=== PATIENT | female | born 1965 | race Caucasian/White ===

== ENCOUNTER → 2017-03-14 | Outpatient (CLI) | payer OTHER ==
--- NOTE | 2017-03-14 15:11 | RADIOLOGY IMAGING REPORT ---
FACILITY: [facility] - [place] PATIENT NAME: Gabi Garcia : 1965 MR: [id number] V: [id number] EXAM DATE: ORDERING PHYSICIAN: LUIS PRITCHETT TECHNOLOGIST: [place] [facility] [place] Gabi [place] : 1965 Visit/Account:[id number] Date of Sevice: 03/14/2017 L SPINE W/O CONTRAST Provided history: Low back and bilateral hip pain with sciatica. Additional pertinent history: None TECHNIQUE: Multiplanar multisequence lumbar MRI was performed without intravenous contrast. COMPARISON STUDIES: none FINDINGS: Segment numbering: Lumbosacral junction at L5-S1. No transitional segment. Extra-spinal soft tissues: Negative Alignment: Normal Osseous signal pattern: none Distal thoracic cord / conus / cauda equina: negative Disc Spaces: Lower T spine: negative L1-L2: Disk height and signal pattern normal. No evidence of disk herniation or central stenosis No significant foraminal stenosis. L2-L3: Disk height and signal pattern normal. No evidence of disk herniation or central stenosi s. No significant foraminal stenosis. L3-L4: Disk height and signal pattern normal. No evidence of disk herniation or central stenos is. No significant foraminal stenosis. L4-L5: Preserved disk height with abnormal low T2 signal indicating degeneration. Mild eccentri c right disc bulge. No herniation or central stenosis. Mild facet hypertrophy and bilateral facet joint effusions without foraminal stenosis. L5-S1: Preserved disk height with abnormal low T2 signal indicating degeneration. Mild more pro minent rightward bulge without herniation or central stenosis. Minor facet hypertrophy and minimal facet joint effusions. Both foramina are mildly narrowed. IMPRESSION: Relatively mild degenerative changes are defined above at L4-5 and L5-S1 without moderate or high-gra de stenotic disease. Report Dictated By: Kuldeep Reich MD at 03/14/2017 3:01 PM Report E-Signed By: Kuldeep Reich MD at 03/14/2017 3:07 PM WSN:[id number]
== END ==
LOC: MRI 01:27
PROVIDERS: ATTEND Family Medicine
DX: M51.36 Other intervertebral disc degeneration, lumbar region (principal); M51.37 Other intervertebral disc degeneration, lumbosacral region
CPT/HCPCS: 72148

== ENCOUNTER → 2018-01-18 | Outpatient (CLI) | payer OTHER ==
--- NOTE | 2018-01-19 10:16 | RADIOLOGY IMAGING REPORT ---
FACILITY: [facility] PATIENT NAME: CHON STEINBERG : [id number] MR: [id number] V: [id number] EXAM DATE: [id number] ORDERING PHYSICIAN: LUIS PRITCHETT TECHNOLOGIST: Maryanne Stone PROCEDURE:BILATERAL DIGITAL SCREENING MAMMOGRAM WITH CAD ASSISTED INTERPRETATION & 3D TOMOSYNTHESIS COMPARISON:04/23/16 INDICATIONS:screening FINDINGS: The breasts have scattered fibroglandular parenchymal densities. There are no mammographic findings concerning for malignancy. No significant interval change. DIAGNOSTIC CATEGORY 1--NEGATIVE. RECOMMENDATIONS: ROUTINE MAMMOGRAM AND CLINICAL EVALUATION IN 1 YEAR. IMPRESSION: BIRADS 1: Negative. Dictated by: Stephan Jose on 01/19/2018 at 8:39 Transcribed by: JIA on 01/19/2018 at 9:48 Approved by: Stephan Jose on 01/19/2018 at 10:15 [facility]
== END ==
LOC: MAMO 01:04
PROVIDERS: ATTEND Family Medicine
DX: Z12.31 Encounter for screening mammogram for malignant neoplasm of breast (principal)
CPT/HCPCS: 77063; 77067